=== PATIENT | male | born 1945 | race Caucasian/White ===

== ENCOUNTER 2017-09-05 21:45 | Emergency (ER) | payer OTHER ==
[2017-09-05 21:56] VITALS: BMI 33.3
[2017-09-05] MEDS ORDERED: NORMODYNE INJ 20 MG VIAL IVP ONE (23:15)
--- NOTE | 2017-09-05 23:30 | DR.HTN ---
HPI - Time Seen Time seen: 23:20 - Primary Care Physician Primary Care Physician: Sammy - Complaints Chief Complaint Doctors Comments: Patient presented for evaluation because of blood pressure elevation. He states that he has been getting BP check at local [facility] and it has been elevated. He has no primary care physician. Patient smokes but denies alcohol Chief Complaint:: HTN Self Treatment fo Chief Complaint: Patient takes pain medication. Oxycodone - Source History Provided: Patient, Significant Other - Mode of Arrival Mode of Arrival: Ambulatory - Timing Onset of Chief Complaint: 09/05/17 - Severity What was the maximum recorded B/P?: 212/96 - Context Treatment of HTN Prior to Arrival: No Rx for HTN meds - Associated Signs and Symptoms HTN Associated Signs and Symptoms: None PMH - PMH Past Medical History: No Past Medical History Comment: Patient states he has no Medical HX but in the last year he has been having stomach trouble about once a month at the least and he gets very nausea and vomits about a "gallon ice cream bucket" amount and feels better afterwards Past Surgical History: Yes Surgical History: Appendectomy - Family History History of Family Medical Conditions: No - Social History Does patient currently use any type of tobacco product: No Have you used tobacco products in the last 12 months: Yes Type of Tobacco Use: Cigarettes Does any household member use tobacco: Yes Alcohol Use: None Do you use any recreational Drugs:: No Lives With: Spouse Lives Where: Home - infectious screening In the last 2 months have you had wt loss of >10#?: NO Have you had fever, night sweats or hemotysis?: No Have you traveled outside the country in the last 6 months?: No ROS - Review of Systems Eyes: No Symptoms Reported ENTM: No Symptoms Reported Respiratoy: No Symptoms Reported Cardiovascular: No Symptoms Reported Gastrointestinal/Abdominal: No Symptoms Reported Genitourinary: No Symptoms Reported Neurological: No Symptoms Reported Musculoskeletal: No Symptoms Reported Integumentary: No Symptoms Reported Hematologic/Lymphatic: No Symptoms Reported Endocrine: No Symptoms Reported Psychiatric: No Symptoms Reported All Other Systems: Reviewed and Negative PE - Vital Signs Vitals: Temperature 97.8 F Pulse Rate 84 Respiratory Rate 16 Blood Pressure 213/96 O2 Sat by Pulse Oximetry 92 - General Limitations: No Limitations General Appearance: Alert, In No Apparent Distress - Head Head Exam: Normal Inspection, Atraumatic - Eyes Eye exam: Normal Appearance, PERRL Pupils: Regular, Round: Bilateral Sclera/Conjunctival: Normal Inspection: Bilateral - ENT ENT Exam: Normal Exam, Normal Oropharynx - Neck Neck Exam: Normal Inspection, Full ROM - Chest Chest Inspection: Normal Inspection - Respiratory Respiratory Exam: Normal Lung Sounds Bilat, Accessory Muscle Use Respiratory Exam: Bilateral Clear to Auscultation - Cardiovascular Cardiovascular Exam: Regular Rate - Abdominal Exam Abdominal Exam: Normal Inspection, Normal Bowel Sounds Abdominal Tenderness: negative: RUQ, RLQ, LUQ, LLQ, Epigastrium, Suprapubic, Diffuse, Mild, Moderate, Severe, Other - Extremities Extremities Exam: Normal Inspection, Full ROM - Back Back Exam: Normal Inspection, Full ROM - Psychiatric Psychiatric Exam: Normal Affect, Normal Mood, Depressed - Skin Skin Exam: Warm, Dry, Intact Course - Consultation Consultation Comments: BP 163/74 - Education/Counseling Educated On: Treatment, Diagnosis, Needs for Follow Up - Diagnosis Discharge Problem: Elevated blood pressure reading - Discharge Plan Condition: Stable - Follow ups/Referrals Follow ups/Referrals: Osmel Christianson [Primary Care Provider] - 3 days - Instructions
[2017-09-05 23:59] VITALS: BP 163/76
== END 2017-09-05 23:56 | disposition home or self-care (01) ==
LOC: ER 22:05
DX: R03.0 Elevated blood-pressure reading, without diagnosis of hypertension (principal)
CPT/HCPCS: 99281

== ENCOUNTER 2022-11-22 13:36 | Inpatient (IN) ==
--- NOTE | 2022-11-22 13:47 | DR.ABDMALE ---
HPI Time seen Time Seen by Provider: 11/22/22 13:46 Complaint Chief Complaint Doctors Comments: 76 y/o male presents for evaluation. Having recurrent abdominal pain over the past 3 months. Has worsened over the past week. Feels discomfort, RUQ, after eating. States it feels like the food is stuck. Not able to eat much. Having nausea, daily vomiting, and constipated frequently. When moves bowels, they tend to be loose. Denies fever. +weight loss, especially over the past week. No specific foods make it worse. Nothing makes it better. Reviewed Nurses Notes Review: Yes Source History provided by:: Patient PMH PMH Past Medical History: Yes Past Medical History: Coronary Artery Disease and Hypertension Past Surgical History: Yes Surgical History: Appendectomy Family History History of Family Medical Conditions: Yes Family Medical History: Hypertension Social History Does patient currently use any type of tobacco product: Yes Type of Tobacco Use: Cigarettes Alcohol Use: None Do you use any recreational Drugs:: No ROS Review of Systems Constitutional: Loss of Appetite and Other (weight loss) Eyes: No Symptoms Reported ENTM: No Symptoms Reported Respiratoy: No Symptoms Reported Cardiovascular: No Symptoms Reported Gastrointestinal/Abdominal: See HPI Genitourinary: No Symptoms Reported Neurological: No Symptoms Reported Musculoskeletal: No Symptoms Reported Integumentary: No Symptoms Reported Psychiatric: No Symptoms Reported All Other Systems: Reviewed and Negative PE Vital Signs Vital Signs: Temp Pulse Resp BP Pulse Ox O2 Del Method 11/22/22 13:47 98.2 F 87 20 115/54 97 Room Air General General Appearance: Alert and In No Apparent Distress Eyes Eye exam: PERRL and EOMI Neck Neck Exam: Normal Inspection Respiratory Respiratory Exam: Normal Lung Sounds Bilat; negative Accessory Muscle Use or Respiratory Distress Cardiovascular Cardiovascular Exam: Regular Rate, Normal Rhythm and Normal Heart Sounds Abdominal Exam Abdominal Exam: Soft and Tenderness (all quadrants, with guarding, no rebound.) Back Back Exam: Normal Inspection Extremeties Extremities Exam: Normal Inspection; negative Edema Neurologic Neurological Exam: Alert, Oriented X3 and CN II-XII Intact; negative Motor Sensory Deficit Skin Skin Exam: Warm and Dry COURSE Treatment Treatment: 76 y/o male with worsening abdominal pain over the past 3 months, associated with weight loss. W/u initiated. Given IV fluids. Will obtain a CT of the abd/pelvis with oral/IV contrast. 1559 - labs show anemia, Hgb 9.0, with a low MCV of 78, c/w iron deficiency. CMP with elevated BUN (78) & Cr (3.9), marked different from recent labs done by PCP (Cr 1.5 then). Will hold off on IV contrast with the CT. CT abd/pelvis - normal small bowel, oral contrast did not pass thru cecum. + gallbladder sludge, + polycystic kidneys. I am still concerned pt has a colonic lesion of his ascending colon. Additional CT images 1 1/2 hours, slight contrast into colon, not much. Will admit for IV hydration for his acute non traumatic renal injury. Discussed with Dr Brannon, will admit. Will put in consult for Dr Lopez, to better evaluate his GB, and disc uss colonoscopy. ROR Labs Reviewed Laboratory Results Reviewed?: Yes Result Diagrams: 11/22/22 14:00 11/22/22 14:00 Laboratory: WBC 11.6 X10^3/uL (3.6-10.0) H 11/22/22 14:00 RBC 3.58 X10^6/uL (4.7-6.0) L 11/22/22 14:00 Hgb 9.0 g/dL (13.5-18.0) L 11/22/22 14:00 Hct 28.0 % (42.0-54.0) L 11/22/22 14:00 MCV 78.1 fL (80.0-100.0) L 11/22/22 14:00 MCH 25.1 pg (27.0-34.0) L 11/22/22 14:00 MCHC 32.1 g/dL (33.0-35.0) L 11/22/22 14:00 RDW 17.9 % (11.6-16.5) H 11/22/22 14:00 Plt Count 317 X10^3/uL (150.0-450.0) 11/22/22 14:00 MPV 7.5 fL (7.4-11.0) 11/22/22 14:00 Neut % (Auto) 80.7 % (42.0-75.0) H 11/22/22 14:00 Lymph % (Auto) 9.4 % (21.0-51.0) L 11/22/22 14:00 [place] % (Auto) 8.3 % (0.0-13.0) 11/22/22 14:00 Eos % (Auto) 0.6 % (0.9-2.9) L 11/22/22 14:00 Baso % (Auto) 1.0 % (0.2-1.0) 11/22/22 14:00 Neut # (Auto) 9.3 x10^3/uL (2.2-4.8) H 11/22/22 14:00 Lymph # (Auto) 1.1 X10^3/uL (1.3-2.9) L 11/22/22 14:00 [place] # (Auto) 1.0 x10^3/uL (0.3-0.8) H 11/22/22 14:00 Eos # (Auto) 0.1 x10^3/uL (0.0-0.2) 11/22/22 14:00 Baso # (Auto) 0.1 X10^3/uL (0.0-0.1) 11/22/22 14:00 Absolute Nucleated RBC 0.0 /100WBC 11/22/22 14:00 Sodium 137 mmol/L (136-145) 11/22/22 14:00 Corrected Sodium 138 mmol/L (136-145) 11/22/22 14:00 Potassium 5.5 mmol/L (3.5-5.1) H 11/22/22 14:00 Chloride 99 mmol/L (98-107) 11/22/22 14:00 Carbon Dioxide 27.4 mmol/L (21-32) 11/22/22 14:00 BUN 78 mg/dL (7-18) H 11/22/22 14:00 Creatinine 3.94 mg/dL (0.70-1.30) H 11/22/22 14:00 Est GFR (MDRD) Af Amer 19 (>60) L 11/22/22 14:00 Est GFR (MDRD) Non-Af 16 (>60) L 11/22/22 14:00 Glucose 144 mg/dL (65-99) H 11/22/22 14:00 Calcium 9.2 mg/dL (8.5-10.1) 11/22/22 14:00 Corrected Calcium 10.0 mg/dL (8.5-10.1) 11/22/22 14:00 Total Bilirubin 0.20 mg/dL (0.2-1.0) 11/22/22 14:00 AST 22 Units/L (15-37) 11/22/22 14:00 ALT 14 Units/L (12-78) 11/22/22 14:00 Alkaline Phosphatase 93 Units/L (46-116) 11/22/22 14:00 Total Protein 7.4 g/dL (6.4-8.2) 11/22/22 14:00 Albumin 3.0 g/dL (3.4-5.0) L 11/22/22 14:00 Globulin 4.4 g/dL (2.5-4.5) 11/22/22 14:00 Albumin/Globulin Ratio 0.7 Ratio (1.1-2.1) L 11/22/22 14:00 Lipase 23 Units/L (73-393) L 11/22/22 14:00 Specimen Type Clean catch urine 11/22/22 15:17 Urine Color Yellow (YELLOW) 11/22/22 15:17 Urine Appearance Clear (CLEAR) 11/22/22 15:17 Urine pH 6.0 (5.0 - 8.0) 11/22/22 15:17 Ur Specific [place] 1.025 (1.000-1.030) 11/22/22 15:17 Urine Protein 1+ (NEGATIVE) 11/22/22 15:17 Urine Glucose (UA) Negative (NEGATIVE) 11/22/22 15:17 Urine Ketones Negative (NEGATIVE) 11/22/22 15:17 Urine Blood Negative (NEGATIVE) 11/22/22 15:17 Urine Nitrite Negative (NEGATIVE) 11/22/22 15:17 Urine Bilirubin Negative (NEGATIVE) 11/22/22 15:17 Urine Urobilinogen Normal (NORMAL) 11/22/22 15:17 Ur Leukocyte Esterase Negative (NEGATIVE) 11/22/22 15:17 Urine RBC None seen /HPF (0-3) 11/22/22 15:17 Urine WBC None seen /HPF (0-5) 11/22/22 15:17 Ur Squamous Epith Cells Rare /HPF (NEGATIVE) 11/22/22 15:17 Amorphous Sediment Trace /HPF (NEGATIVE) 11/22/22 15:17 Urine Bacteria Negative /HPF (NEGATIVE) 11/22/22 15:17 Hyaline Casts Rare /LPF (NEGATIVE) 11/22/22 15:17 Ur Culture Indicated? No/not indicated 11/22/22 15:17 Cr 3.94 (was 1.5 within the past week). XRAY XRAY Interpreted by: Both X-ray Results: + GB sludge. Oral contrast thru the small bowel, colon NOT lit up. Opioid Opioid Risk Tool Total: 0 Total Score Risk Category: Low Risk Copyright: Jose VILLALOBOS predicting aberrant behaviors Discharge Plan Diagnosis Discharge Problem: Acute nontraumatic kidney injury, Abdominal pain, chronic, right upper quadrant, Biliary sludge Discharge Plan Patient Disposition: ADMITTED INPATIENT Condition: Stable
[2022-11-22] MEDS ORDERED: ZOFRAN INJ 4 MG VIAL IVP ONE (13:53)
[2022-11-22] MEDS ORDERED: ZOFRAN INJ 4 MG VIAL ONE (13:57)
[2022-11-22] MEDS ORDERED: NS 500 ML IV 500 ML IV ONE ×3 (13:58→14:43)
[2022-11-22] MEDS: NS 500 ML IV 500 ML IV ONE ×2 (14:04→14:44)
[2022-11-22 14:10] LABS: BASOPHILS # (AUTO) 0.1 X10^3/uL (0.0-0.1); EOSINOPHILS # (AUTO) 0.1 x10^3/uL (0.0-0.2); EOSINOPHILS % (AUTO) 0.6 % (0.9-2.9); LYMPHOCYTES # (AUTO) 1.1 X10^3/uL (1.3-2.9); LYMPHOCYTES % (AUTO) 9.4 % (21.0-51.0); MEAN CORPUSCULAR HEMOGLOBIN 25.1 pg (27.0-34.0); MEAN CORPUSCULAR HGB CONC 32.1 g/dL (33.0-35.0); MEAN CORPUSCULAR VOLUME 78.1 fL (80.0-100.0); MEAN PLATELET VOLUME 7.5 fL (7.4-11.0); MONOCYTES % (AUTO) 8.3 % (0.0-13.0); NEUTROPHILS # (AUTO) 9.3 x10^3/uL (2.2-4.8); NEUTROPHILS % (AUTO) 80.7 % (42.0-75.0); RED BLOOD COUNT 3.58 X10^6/uL (4.7-6.0); RED CELL DISTRIBUTION WIDTH 17.9 % (11.6-16.5); WHITE BLOOD COUNT 11.6 X10^3/uL (3.6-10.0)
[2022-11-22 14:21] LABS: CALCIUM 9.2 mg/dL (8.5-10.1); CARBON DIOXIDE 27.4 mmol/L (21-32); CREATININE 3.94 mg/dL (0.70-1.30); TOTAL PROTEIN 7.4 g/dL (6.4-8.2)
[2022-11-22 15:55] LABS: APPEARANCE,URINE CLEAR (CLEAR); BILIRUBIN,URINE NEGATIVE (NEGATIVE); BLOOD/HEMOGLOBIN,URINE NEGATIVE (NEGATIVE); COLOR,URINE YELLOW (YELLOW); GLUCOSE, URINE NEGATIVE (NEGATIVE); KETONES,URINE NEGATIVE (NEGATIVE); LEUKOCYTE ESTERASE ,URINE NEGATIVE (NEGATIVE); NITRITES,URINE NEGATIVE (NEGATIVE); PROTEIN,URINE 1+ (NEGATIVE); UROBILINOGEN,URINE NORMAL (NORMAL)
[2022-11-22 15:59] LABS: BACTERIA,URINE NEGATIVE /HPF (NEGATIVE); HYALINE CASTS, URINE RARE /LPF (NEGATIVE); RBC,URINE NONE SEEN /HPF (0-3); SQUAMOUS EPITHELIAL CELL,UR RARE /HPF (NEGATIVE)
--- NOTE | 2022-11-22 16:45 | CT ---
HISTORYRT SIDED ABD PAIN X MTHSSTUDYABDOMEN/PELVIS W/O CONCOMPARISONNoneTECHNIQUENon-contrasted axial CT images of the abdomen and pelvis were obtained and reformatted into coronal and sagittal planes for further evaluation. Enteric contrast was administered.Radiation dose: 201.23 mGy-cm total DLPFINDINGSLung bases are clear.Mild centrilobular emphysema.Stomach appears normal.Solid visceral organs of the upper abdomen are unremarkable.Sludge in the dependent portion of the gallbladder with no imaging findings of acute cholecystitis.No intra or extrahepatic biliary dilatation.Bilateral renal cysts.Nonobstructing bilateral small nephroliths.No hydronephrosis, hydroureter or ureteral calculus.Unremarkable appearance of the urinary bladder.Normal appearance of the small and large bowel.Reproductive structures are unremarkable.No evidence of acute appendicitis.No pneumoperitoneum.No significant fluid collection.No adenopathy.No acute osseous abnormality.Multilevel mild degenerative disc and [id number] degenerative joint changes.IMPRESSION1. No acute intra-abdominal abnormality detected.2. Sludge in the dependent portion of the gallbladder with no imaging findings of acute cholecystitis.3. Nonobstructing bilateral nephrolithiasis.4. Mild centrilobular emphysema.Electronically signed by: Usman Atkins (Nov 22, 2022 16:45:09)
--- NOTE | 2022-11-22 18:13 | CT ---
HISTORYdelayed f/u from oral contrast exam performed today, R abd pain/wgt lossSTUDYABDOMEN/PELVIS W/O CONCOMPARISONCT performed 2 hours priorTECHNIQUEMultiple axial images of the abdomen and pelvis were obtained from the lung bases to the pubic symphysis without the administration of IV contrast. Dose reduction techniques including Automated Exposure Control (AEC) and adjustment of mA and kV were utilized.FINDINGS[Oral contrast has advanced to the the terminal ileum, there is no evidence of bowel obstruction or bowel wall thickening involving the small bowel small bowel.]No acute findings or significant change CT examination.IMPRESSIONNo significant change or acute finding within abdomen or pelvis compared to recent CT examination. Please see previous report for additional abdominal and pelvic findings.Electronically signed by: SMITH PALACIOS (Nov 22, 2022 18:12:08)
[2022-11-22] MEDS: NICOTINE PATCH TD SCH (20:00)
[2022-11-22] MEDS: NS 1,000 ML IV 1,000 ML IV SCH (21:43)
[2022-11-22] MEDS: ZOFRAN INJ 4 MG VIAL IVP SCH (21:43)
[2022-11-23] MEDS: ZOFRAN INJ 4 MG VIAL IVP SCH ×4 (04:00→20:46)
[2022-11-23] MEDS: NS 1,000 ML IV 1,000 ML IV SCH ×5 (04:36→16:09)
--- NOTE | 2022-11-23 05:57 | RAD ---
PROCEDURE: Chest X-ray 1 View .HISTORY: WEIGHT LOSS .TECHNIQUE: AP view .COMPARISON: None .TECHNICAL QUALITY: Satisfactory .FINDINGS:Normal size heart .Mass or lymphadenopathy right paratracheal an azygos vein region with the area measuring about 6.5 cm in diameter. Hilar regions are unremarkable.Normal central vascularity .No pulmonary consolidation, masses, pleural fluid, or pneumothorax .No acute bony abnormality .IMPRESSION:1. Right paratracheal an azygos vein mass and CT of the chest with IV contrast recommended.2. No other acute change identified.Electronically signed by: Meño Trinidad (Nov 23, 2022 05:55:52)
[2022-11-23 06:44] LABS: BASOPHILS # (AUTO) 0.1 X10^3/uL (0.0-0.1); BASOPHILS % (AUTO) 0.7 % (0.2-1.0); EOSINOPHILS # (AUTO) 0.2 x10^3/uL (0.0-0.2); EOSINOPHILS % (AUTO) 1.4 % (0.9-2.9); HEMATOCRIT 26.6 % (42.0-54.0); HEMOGLOBIN 8.7 g/dL (13.5-18.0); LYMPHOCYTES # (AUTO) 1.1 X10^3/uL (1.3-2.9); LYMPHOCYTES % (AUTO) 9.6 % (21.0-51.0); MEAN CORPUSCULAR HEMOGLOBIN 25.2 pg (27.0-34.0); MEAN CORPUSCULAR HGB CONC 32.7 g/dL (33.0-35.0); MEAN CORPUSCULAR VOLUME 77.1 fL (80.0-100.0); MEAN PLATELET VOLUME 7.6 fL (7.4-11.0); MONOCYTES # (AUTO) 0.9 x10^3/uL (0.3-0.8); MONOCYTES % (AUTO) 7.5 % (0.0-13.0); NEUTROPHILS # (AUTO) 9.5 x10^3/uL (2.2-4.8); NEUTROPHILS % (AUTO) 80.8 % (42.0-75.0); RED BLOOD COUNT 3.45 X10^6/uL (4.7-6.0); RED CELL DISTRIBUTION WIDTH 17.4 % (11.6-16.5); WHITE BLOOD COUNT 11.7 X10^3/uL (3.6-10.0)
[2022-11-23 06:49] LABS: ALBUMIN 2.8 g/dL (3.4-5.0); CALCIUM 8.7 mg/dL (8.5-10.1); CARBON DIOXIDE 26.8 mmol/L (21-32); COR CA(FOR HYPOALB) 9.7 mg/dL (8.5-10.1); CREATININE 2.7 mg/dL (0.70-1.30); TOTAL PROTEIN 6.9 g/dL (6.4-8.2)
[2022-11-23] MEDS ORDERED: ZESTRIL TAB 20 MG PO SCH (09:00)
[2022-11-23] MEDS ORDERED: HYDROCHLOROTHIAZIDE 12.5 MG CAP PO SCH (09:00)
[2022-11-23] MEDS ORDERED: D5 1/2 NS 1,000 ML 1,000 ML IV ONE (09:51)
[2022-11-23] MEDS ORDERED: DIPRIVAN VIAL 20 ML ONE (09:59)
[2022-11-23] MEDS ORDERED: NEO-SYNEPHRINE INJ ONE (10:04)
[2022-11-23 10:42] VITALS: BMI 24.1
[2022-11-23] MEDS ORDERED: DULCOLAX SUPPOSITORY 10 MG RECTAL ONE (10:50)
--- NOTE | 2022-11-23 11:20 | DR.H&P ---
H&P - History & Physical for Day of: H&P Date: 11/22/22 - History of Present Illness History of Present Illness: 76 y/o male presents for evaluation. Having recurrent abdominal pain over the past 3 months. Has worsened over the past week. Feels discomfort, RUQ, after eating. States it feels like the food is stuck. Not able to eat much. Having nausea, daily vomiting, and constipated frequently. When moves bowels, they tend to be loose. Denies fever. +weight loss, especially over the past week. No specific foods make it worse. Nothing makes it better. - Past Medical History Past Medical History: Coronary Artery Disease, Hypertension Additional Medical History: PAD - Past Surgical History Surgical History: Appendectomy, Other - Family History Family Medical History: Hypertension - Social History Does patient currently use any type of tobacco product: Yes Have you used tobacco products in the last 12 months: Yes Type of Tobacco Use: Cigarettes Does any household member use tobacco: Yes Alcohol Use: None Drug Use: None - Medications Home Medications: No Known Allergies Allergy (Verified 11/22/22 13:52) CONTINUE taking the following medications famotidine 20 mg tablet 1 tab PO QPM 11/22/22 [History] lisinopril 20 mg-hydrochlorothiazide 12.5 mg tablet 1 tab PO QDAY 11/22/22 [History] methylprednisolone 4 mg tablet 4 tab PO DIRECTED 11/22/22 [History] oxycodone 30 mg tablet 1 tab PO Q6H PRN pain 11/22/22 [History] permethrin 5 % topical cream 5 applic topical QDAY 11/22/22 [History] sulfamethoxazole 800 mg-trimethoprim 160 mg tablet 1 tab PO BID 11/22/22 [History] - Review of Systems Constitutional: Weakness, Malaise Eyes: No Symptoms Reported Respiratory: Shortness of Breath Cardiovascular: No Symptoms Reported Gastrointestinal: Nausea, Abdominal Pain, Constipation Genitourinary: Frequency, Other (INCOMPLETE VOID) Musculoskeletal: Hand Pain Skin: No Symptoms Reported Neurological: No Symptoms Reported - Physical Exam Vital Signs: Temperature 98.3 F Pulse Rate [Bilateral Radial] 74 Pulse Rate 87 Respiratory Rate 18 Blood Pressure [Right Arm] 94/50 Blood Pressure [Left Arm] 103/52 Blood Pressure 115/54 O2 Sat by Pulse Oximetry 95 Oriented: Normal Eyes: Normal Ear: Normal Nose: Normal Throat: Normal Respiratory: RLL Diminished, LLL Diminished Cardiovascular: Normal. negative: Edema : Normal Auscultation: Bowel Sounds: Decreased Palpation: Normal Tenderness: RUQ Skin: Decreased Turgur Musculoskeletal: Back:Lumbar Psychiatric: Anxiety Affect: Anxious Speech Pattern: Clear, Appropriate - Assessment/Plan (1) Acute nontraumatic kidney injury Status: Acute Plan: ADMIT, GENTLE IV HYDRATION, STRICT I&OS. CT ABD PELVIS ON ADMISSION, BP CONTROL. REVIEW HOME MEDICATION, PAIN CONTROL. GI CONSULT, NPO AFTER MIDNIGHT. PPI THERAPY (2) Abdominal pain, chronic, right upper quadrant Status: Acute (3) Hypertension Status: Acute (4) Constipation Status: Acute - Allergies Allergies/Adverse Reactions: Allergies Allergy/AdvReac Type Severity Reaction Status Date / Time No Known Allergies Allergy Verified 11/22/22 13:52
[2022-11-23] MEDS: NICOTINE PATCH TD SCH (11:24)
[2022-11-23 11:42] LABS: CHOL/HDL RATIO 2.1 (0.0-5.0)
[2022-11-23 12:41] LABS: ABG BASE EXCESS 0.7 mmol/L (-2.0-2.0); ABG HCO3 25.4 mmol/L (22-26)
[2022-11-23] MEDS ORDERED: STERILE WATER IRRIGATION IR ONE (14:00)
[2022-11-23] MEDS: MILK OF MAGNESIA PO SCH ×2 (14:26→20:43)
[2022-11-23] MEDS: CARAFATE PO SCH ×2 (14:27→21:23)
[2022-11-23] MEDS ORDERED: ROCEPHIN 1 GRAM IV PREMIX 1 G/50 ML IV.SOLN. IV SCH (15:25)
[2022-11-23] MEDS: PROTONIX INJ 40 MG VIAL IVP SCH (20:41)
[2022-11-23] MEDS: RESTORIL CAP 15 MG PO PRN (23:08)
[2022-11-24] MEDS: NS 1,000 ML IV 1,000 ML IV SCH ×5 (05:24→20:00)
[2022-11-24] MEDS: ZOFRAN INJ 4 MG VIAL IVP SCH ×4 (05:25→22:32)
[2022-11-24] MEDS: CARAFATE PO SCH ×3 (06:11→22:30)
[2022-11-24 06:31] LABS: BASOPHILS # (AUTO) 0.1 X10^3/uL (0.0-0.1); BASOPHILS % (AUTO) 0.8 % (0.2-1.0); EOSINOPHILS # (AUTO) 0.1 x10^3/uL (0.0-0.2); EOSINOPHILS % (AUTO) 1.5 % (0.9-2.9); HEMATOCRIT 23.9 % (42.0-54.0); HEMOGLOBIN 7.9 g/dL (13.5-18.0); LYMPHOCYTES % (AUTO) 12.6 % (21.0-51.0); MEAN CORPUSCULAR HEMOGLOBIN 25.5 pg (27.0-34.0); MEAN CORPUSCULAR HGB CONC 33.1 g/dL (33.0-35.0); MEAN CORPUSCULAR VOLUME 76.8 fL (80.0-100.0); MEAN PLATELET VOLUME 7.2 fL (7.4-11.0); MONOCYTES # (AUTO) 0.8 x10^3/uL (0.3-0.8); MONOCYTES % (AUTO) 10.2 % (0.0-13.0); NEUTROPHILS # (AUTO) 6.2 x10^3/uL (2.2-4.8); NEUTROPHILS % (AUTO) 74.9 % (42.0-75.0); RED CELL DISTRIBUTION WIDTH 17.6 % (11.6-16.5); WHITE BLOOD COUNT 8.3 X10^3/uL (3.6-10.0)
[2022-11-24 06:45] LABS: ALBUMIN 2.4 g/dL (3.4-5.0); CALCIUM 8.6 mg/dL (8.5-10.1); CARBON DIOXIDE 27.9 mmol/L (21-32); COR CA(FOR HYPOALB) 9.9 mg/dL (8.5-10.1); CREATININE 1.7 mg/dL (0.70-1.30); TOTAL PROTEIN 6.1 g/dL (6.4-8.2)
[2022-11-24] MEDS ORDERED: ZESTRIL TAB 5 MG PO SCH (09:00)
[2022-11-24] MEDS: PROTONIX INJ 40 MG VIAL IVP SCH ×2 (10:00→22:32)
[2022-11-24] MEDS: NICOTINE PATCH TD SCH (10:01)
[2022-11-24] MEDS: ROCEPHIN VIAL 1 GRAM 1 G in NS 100 ML IV 100 ML IV SCH (10:01)
[2022-11-24] MEDS: MILK OF MAGNESIA PO SCH ×2 (10:02→22:32)
--- NOTE | 2022-11-24 12:37 | CT ---
HISTORYRT LUNG MASSSTUDYCT chest without contrastCOMPARISONChest one view from 11/22/2022.TECHNIQUEMultiple axial images of the chest were obtained from the thoracic inlet to the upper abdomen without the administration of IV contrast. Dose reduction techniques including Automated Exposure Control (AEC) and adjustment of mA and kV were utilized.FINDINGSHeart/Mediastinum: Normal heart size without a significant pericardial effusion. A very large right paratracheal mass is seen correlating with the findings of the prior chest radiograph measuring 9 x 7 cm on image 21 of series 5. There is associated mass effect on the trachea. The trachea remains patent. The main bronchi are also widely patent.Vasculature: No acute findings. There is severe coronary atherosclerosis with moderate calcification of the aorta, great vessels and the visualized upper abdominal arterial branches.Lungs: There is mild emphysema. A pleural-based inferior and posterior right lower lobe nodule measures 2.6 cm on image 61 of series 5. No other suspicious pulmonary nodule or mass is seen. No suspicious area of consolidation. No pneumothorax or pleural effusion.Upper Abdomen: No acute findings or significant interval changes compared to the CT scans of the abdomen and pelvis performed on 11/22/2022.Additional Findings:None.Bones: No acute findings. There are degenerative changes throughout the spine.IMPRESSION1. 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 No other evidence of metastatic disease.2. Additional findings as above.Electronically signed by: Rambo Raines (Nov 24, 2022 12:36:15)
[2022-11-24] MEDS: ROXICODONE TAB 15 MG PO PRN ×2 (15:57→22:30)
[2022-11-24] MEDS: RESTORIL CAP 15 MG PO PRN (22:30)
[2022-11-25] MEDS: NS 1,000 ML IV 1,000 ML IV SCH ×4 (02:11→22:04)
[2022-11-25] MEDS: ZOFRAN INJ 4 MG VIAL IVP SCH ×4 (03:55→21:56)
[2022-11-25] MEDS: CARAFATE PO SCH ×3 (05:32→21:55)
[2022-11-25 06:14] LABS: BASOPHILS # (AUTO) 0.1 X10^3/uL (0.0-0.1); BASOPHILS % (AUTO) 0.8 % (0.2-1.0); EOSINOPHILS # (AUTO) 0.2 x10^3/uL (0.0-0.2); EOSINOPHILS % (AUTO) 2.6 % (0.9-2.9); HEMATOCRIT 23.1 % (42.0-54.0); HEMOGLOBIN 7.7 g/dL (13.5-18.0); LYMPHOCYTES # (AUTO) 0.9 X10^3/uL (1.3-2.9); LYMPHOCYTES % (AUTO) 12.5 % (21.0-51.0); MEAN CORPUSCULAR HEMOGLOBIN 25.6 pg (27.0-34.0); MEAN CORPUSCULAR HGB CONC 33.3 g/dL (33.0-35.0); MEAN CORPUSCULAR VOLUME 76.8 fL (80.0-100.0); MEAN PLATELET VOLUME 7.3 fL (7.4-11.0); MONOCYTES # (AUTO) 0.7 x10^3/uL (0.3-0.8); MONOCYTES % (AUTO) 9.7 % (0.0-13.0); NEUTROPHILS # (AUTO) 5.1 x10^3/uL (2.2-4.8); NEUTROPHILS % (AUTO) 74.4 % (42.0-75.0); RED BLOOD COUNT 3.01 X10^6/uL (4.7-6.0); RED CELL DISTRIBUTION WIDTH 17.5 % (11.6-16.5); WHITE BLOOD COUNT 6.8 X10^3/uL (3.6-10.0)
[2022-11-25 06:49] LABS: ALANINE AMINOTRANSFERASE 14 Units/L (12-78); ALBUMIN 2.3 g/dL (3.4-5.0); ALKALINE PHOSPHATASE 73 Units/L (46-116); ASPARTATE AMINO TRANSFERASE 23 Units/L (15-37); BLOOD UREA NITROGEN 22 mg/dL (7-18); CALCIUM 8.1 mg/dL (8.5-10.1); CARBON DIOXIDE 30.1 mmol/L (21-32); CHLORIDE 105 mmol/L (98-107); COR CA(FOR HYPOALB) 9.5 mg/dL (8.5-10.1); CREATININE 1.36 mg/dL (0.70-1.30); SODIUM 139 mmol/L (136-145); TOTAL PROTEIN 5.9 g/dL (6.4-8.2); eGFR NON BLACK RACES 54 (>60)
[2022-11-25] MEDS: PROTONIX INJ 40 MG VIAL IVP SCH ×2 (09:04→22:00)
[2022-11-25] MEDS: ROCEPHIN VIAL 1 GRAM 1 G in NS 100 ML IV 100 ML IV SCH (09:05)
[2022-11-25] MEDS: NICOTINE PATCH TD SCH (09:05)
[2022-11-25] MEDS: MILK OF MAGNESIA PO SCH ×2 (09:06→21:57)
[2022-11-25] MEDS: ROXICODONE TAB 15 MG PO PRN ×3 (09:06→21:56)
[2022-11-25] MEDS ORDERED: GOLYTELY or GAVILYTE or Equivalent PO SCH (11:00)
[2022-11-25] MEDS: RESTORIL CAP 15 MG PO PRN (21:55)
[2022-11-26] MEDS: NS 1,000 ML IV 1,000 ML IV SCH ×3 (01:04→17:08)
[2022-11-26] MEDS: ZOFRAN INJ 4 MG VIAL IVP SCH ×5 (03:04→21:10)
[2022-11-26] MEDS: ROXICODONE TAB 15 MG PO PRN ×3 (04:40→23:57)
[2022-11-26 05:13] LABS: BASOPHILS % (AUTO) 0.6 % (0.2-1.0); EOSINOPHILS # (AUTO) 0.1 x10^3/uL (0.0-0.2); EOSINOPHILS % (AUTO) 1.9 % (0.9-2.9); HEMATOCRIT 23.2 % (42.0-54.0); HEMOGLOBIN 7.8 g/dL (13.5-18.0); LYMPHOCYTES # (AUTO) 0.9 X10^3/uL (1.3-2.9); LYMPHOCYTES % (AUTO) 11.9 % (21.0-51.0); MEAN CORPUSCULAR HEMOGLOBIN 25.6 pg (27.0-34.0); MEAN CORPUSCULAR HGB CONC 33.4 g/dL (33.0-35.0); MEAN CORPUSCULAR VOLUME 76.6 fL (80.0-100.0); MEAN PLATELET VOLUME 7.4 fL (7.4-11.0); MONOCYTES # (AUTO) 0.7 x10^3/uL (0.3-0.8); MONOCYTES % (AUTO) 8.4 % (0.0-13.0); NEUTROPHILS # (AUTO) 6.1 x10^3/uL (2.2-4.8); NEUTROPHILS % (AUTO) 77.2 % (42.0-75.0); RED BLOOD COUNT 3.03 X10^6/uL (4.7-6.0); RED CELL DISTRIBUTION WIDTH 17.9 % (11.6-16.5); WHITE BLOOD COUNT 7.9 X10^3/uL (3.6-10.0)
[2022-11-26 05:22] LABS: ALANINE AMINOTRANSFERASE 15 Units/L (12-78); ALBUMIN 2.4 g/dL (3.4-5.0); ALKALINE PHOSPHATASE 76 Units/L (46-116); ASPARTATE AMINO TRANSFERASE 25 Units/L (15-37); BLOOD UREA NITROGEN 15 mg/dL (7-18); CARBON DIOXIDE 29.8 mmol/L (21-32); CHLORIDE 103 mmol/L (98-107); COR CA(FOR HYPOALB) 9.3 mg/dL (8.5-10.1); CREATININE 1.13 mg/dL (0.70-1.30); SODIUM 138 mmol/L (136-145); TOTAL PROTEIN 6.1 g/dL (6.4-8.2); eGFR NON BLACK RACES > 60 (>60)
[2022-11-26] MEDS: CARAFATE PO SCH ×3 (05:23→21:10)
[2022-11-26] MEDS ORDERED: NS 500 ML IV 500 ML IV ONE (09:47)
[2022-11-26] MEDS: MILK OF MAGNESIA PO SCH ×2 (09:48→21:09)
[2022-11-26] MEDS ORDERED: DIPRIVAN VIAL 20 ML ONE (09:52)
[2022-11-26] MEDS: ROCEPHIN VIAL 1 GRAM 1 G in NS 100 ML IV 100 ML IV SCH (10:22)
[2022-11-26] MEDS: PROTONIX INJ 40 MG VIAL IVP SCH ×2 (10:23→21:09)
[2022-11-26] MEDS: NICOTINE PATCH TD SCH (10:30)
[2022-11-26] MEDS: RESTORIL CAP 15 MG PO PRN (21:17)
[2022-11-27] MEDS: ZOFRAN INJ 4 MG VIAL IVP SCH ×2 (05:45→11:09)
[2022-11-27] MEDS: CARAFATE PO SCH ×2 (05:46→13:30)
[2022-11-27] MEDS: NS 1,000 ML IV 1,000 ML IV SCH (05:48)
[2022-11-27 06:13] LABS: BASOPHILS % (AUTO) 0.5 % (0.2-1.0); EOSINOPHILS # (AUTO) 0.2 x10^3/uL (0.0-0.2); EOSINOPHILS % (AUTO) 2.6 % (0.9-2.9); HEMATOCRIT 23.6 % (42.0-54.0); HEMOGLOBIN 7.8 g/dL (13.5-18.0); LYMPHOCYTES # (AUTO) 0.9 X10^3/uL (1.3-2.9); MEAN CORPUSCULAR HEMOGLOBIN 25.5 pg (27.0-34.0); MEAN CORPUSCULAR HGB CONC 33.2 g/dL (33.0-35.0); MEAN PLATELET VOLUME 7.4 fL (7.4-11.0); MONOCYTES # (AUTO) 0.6 x10^3/uL (0.3-0.8); MONOCYTES % (AUTO) 7.2 % (0.0-13.0); NEUTROPHILS # (AUTO) 6.4 x10^3/uL (2.2-4.8); NEUTROPHILS % (AUTO) 78.7 % (42.0-75.0); RED BLOOD COUNT 3.07 X10^6/uL (4.7-6.0); RED CELL DISTRIBUTION WIDTH 17.6 % (11.6-16.5); WHITE BLOOD COUNT 8.2 X10^3/uL (3.6-10.0)
[2022-11-27 06:36] LABS: ALANINE AMINOTRANSFERASE 15 Units/L (12-78); ALBUMIN 2.3 g/dL (3.4-5.0); ALKALINE PHOSPHATASE 72 Units/L (46-116); ASPARTATE AMINO TRANSFERASE 21 Units/L (15-37); BLOOD UREA NITROGEN 10 mg/dL (7-18); CALCIUM 8.3 mg/dL (8.5-10.1); CARBON DIOXIDE 28.4 mmol/L (21-32); CHLORIDE 104 mmol/L (98-107); COR CA(FOR HYPOALB) 9.7 mg/dL (8.5-10.1); COR NA(FOR HYPERGLY) 140 mmol/L (136-145); SODIUM 139 mmol/L (136-145); TOTAL PROTEIN 6.1 g/dL (6.4-8.2); eGFR NON BLACK RACES > 60 (>60)
[2022-11-27] MEDS: NICOTINE PATCH TD SCH (08:43)
[2022-11-27] MEDS: ROCEPHIN VIAL 1 GRAM 1 G in NS 100 ML IV 100 ML IV SCH (08:45)
[2022-11-27] MEDS: PROTONIX INJ 40 MG VIAL IVP SCH (08:45)
[2022-11-27] MEDS: MILK OF MAGNESIA PO SCH (08:46)
[2022-11-27] MEDS: ROXICODONE TAB 15 MG PO PRN (08:53)
[2022-11-27] MEDS ORDERED: INFeD or DEXFERRUM 25 MG in NS 100 ML IV 100 ML IV NR (09:00)
[2022-11-27] MEDS ORDERED: INFeD or DEXFERRUM 975 MG in NS 500 ML IV 500 ML IV ONE (10:30)
[2022-11-27 12:11] VITALS: BP 137/85
== END 2022-11-27 15:00 | disposition home or self-care (01) | DRG 684 ==
LOC: EDBD → ER 13:36 → MED/SURG 17:17 → MERGE 17:17 → MED/SURG 19:07
PROVIDERS: ADMIT Internal Medicine; ATTEND Internal Medicine